=== PATIENT | male | born 1995 | race Caucasian/White ===

== ENCOUNTER 2020-02-19 17:44 | Emergency (ER) | payer SELFPAY ==
[~2020-02-19] VITALS: Ht 180.3 cm; Wt 79.5 kg
[~2020-02-19 17:44] MED LIST: MOTRIN 800800 MG/TAB PO; PHENERGAN 25 TA25 MG PO; TYLENOL W/COD1 UDTAB PO
[2020-02-19] MEDS ORDERED: CLEOCIN HCL300 MG PO (21:00)
[2020-02-19] MEDS ORDERED: CIPRO 500MG TA500 MG PO (21:00)
[2020-02-19 21:41] VITALS: BP 130/70; PULSE 68; TEMP 97.1
== END 2020-02-19 21:41 | disposition home or self-care (01) ==
LOC: COL.ER 17:44
DX: S51.852A Open bite of left forearm, initial encounter (principal); L03.114 Cellulitis of left upper limb; Z23 Encounter for immunization; Z88.0 Allergy status to penicillin; W54.0XXA Bitten by dog, initial encounter; Y92.59 Other trade areas as the place of occurrence of the external cause
CPT/HCPCS: J1170; J7030